=== PATIENT | female | born 1985 | race Two or more races ===

== ENCOUNTER 2020-01-27 16:44 | Outpatient (REF) | payer OTHER, SELFPAY | END 2020-01-27 16:45 | disposition home or self-care (01) | LOC: HO.LAB 16:44 | PROVIDERS: PCP Internal Medicine; Visit Provider Internal Medicine | DX: Z20.828 Contact with and (suspected) exposure to other viral communicable diseases (principal) | CPT/HCPCS: U0003 ==

== ENCOUNTER 2023-11-21 17:17 | Emergency (ER) | payer OTHER, SELFPAY ==
--- NOTE | ~2023-11-21 | CT_ITS ---
EXAMINATION: CT MAXILLOFACIAL WITH CONTRAST CLINICAL INFORMATION: Extensive left facial abscess. COMPARISON: None available. TECHNIQUE: Multidetector helical imaging of the maxillofacial bones was performed in the axial plane following the administration of 85 mL of Omnipaque 350 intravenous contrast. Generation of coronal and sagittal reformatted images. This CT examination was performed using dose optimization techniques as appropriate, variously including the following: *Automated exposure control *Adjustment of mA and/or kV according to patient size (this includes techniques or standardized protocols for targeted exams where dose is matched to indication/reason for exam; i.e. extremities or head) *Use of iterative reconstruction technique DLP: 345 mGy-cm FINDINGS: FRONTAL SINUSES AND DRAINAGE PATHWAYS: The frontal sinuses are clear. The frontoethmoidal recesses are patent. MAXILLARY SINUSES AND DRAINAGE PATHWAYS: Moderate mucosal thickening of the left maxillary sinus. The right maxillary sinus is clear. The maxillary ostia and infundibula are patent. ETHMOID SINUSES: Mild mucosal thickening of the ethmoid air cells. The ethmoid roofs appear symmetric and intact. SPHENOID SINUS AND DRAINAGE PATHWAYS: The sphenoid sinus is clear. The sphenoethmoidal recesses are patent. The carotid canals are normally covered by bone. NASAL PASSAGE: Mild mucosal thickening of the nasal passages. Mild rightward nasal septal deviation with spurring. ORBITS: Normal appearance of the osseous orbits. The lamina papyracea are intact. No significant retrobulbar edema. Normal appearance of the globes. Normal symmetric appearance of the extraocular musculature. No abnormalities of the intraconal or extraconal adipose tissue. Normal appearance of the optic nerve sheaths. Normal appearance of the lacrimal glands. No orbital fluid collections. No abnormalities of the orbital apices. TEMPOROMANDIBULAR JOINTS: The temporomandibular joints remain well aligned. Normal appearance of the temporomandibular joints. ADDITIONAL RELEVANT FINDINGS: No evidence of maxillofacial bone fractures. The zygomatic arches remain intact. No nasal bone fracture. No evidence of mandibular or maxillary fracture. No significant maxillary/mandibular periapical disease. The visualized mastoid air cells and middle ear cavities remain well aerated. Limited evaluation of the intracranial structures without significant abnormalities. Periapical lucencies associated with the maxillary left premolars. Moderate cutaneous thickening and subcutaneous edema in the left side of face, centered in the inferior periorbital soft tissues/malar region. Moderate fat stranding extends into the left buccal and retromaxillary soft tissues. No radiopaque foreign bodies. There are demonstrated discrete drainable fluid collection. The right premaxillary/retromaxillary soft tissues are clear. The pterygopalatine fossa, temporal fossa, and parapharyngeal adipose tissue is maintained. No demonstrated soft tissue abnormalities within the intrinsic tissues of the tongue. Fatty atrophy of muscle mandibular glands. Micronodular appearance of the remaining parotid glandular tissue, otherwise largely with fatty replacement. CT/CT facial bones w IV con IMPRESSION: Moderate edema throughout the left side of face, centered in the inferior periorbital soft tissues/malar region. Moderate fat stranding extends into the left buccal and retromaxillary soft tissues. Moderate left maxillary sinus disease. Periapical disease associated with the maxillary left premolars. Findings are suggestive of left facial cellulitis without discrete drainable fluid collection. No radiopaque foreign bodies. Potentially odontogenic in nature. Fatty atrophy of the parotid and submandibular glands with micronodular appearance. This appearance is nonspecific but may be seen in the setting of Sjogren syndrome. Electronically signed by: Azeem Williamson DO 11/21/2023 09:59 PM EDT
[2023-11-21 17:21] VITALS: BP 143/93; PULSE 105; RESP 18; TEMP 37.1; O2SAT 98; BMI 28.9
--- NOTE | 2023-11-21 17:28 | ED.DENTAL ---
HPI - Dental/Oral General Chief complaint: Dental/Oral Stated complaint: dental/on antibiotics but getting worse Time Seen by Provider: 11/21/23 18:32 Source: patient Mode of arrival: ambulatory Limitations: no limitations History of Present Illness ED Provider: Corazon Naylor PA-C HPI Narrative: Patient is a 38 year old assigned female at with no reported medical history presenting to the emergency department today with left sided facial swelling. Patient states that yesterday, she began to have upper dental pain and left sided facial swelling. Patient states that her dentist called in Amoxicillin and then saw her in the office today. Patient states that since the office visit, her swelling has gotten significantly worse. Patient denies any dizziness, lightheadedness, abdominal pain, nausea, vomiting, fever, chills, blurry vision, double vision, loss of vision, chest pain, difficulty breathing, shortness of breath, back pain, night sweats, pain with urination, increased urinary frequency, increased urinary urgency, blood in her urine or stool, syncope or a near syncopal episode, recent trauma or falls, bowel incontinence, bladder incontinence, or any other complaints at this time. Relieving factors: nothing Exacerbating factors: nothing Treatment prior to arrival: other (2 doses of Amoxicillin) Related Data Allergies Allergy/AdvReac Type Severity Reaction Status Date / Time No Known Allergies Allergy Verified 11/21/23 17:29 Review of Systems Constitutional: Constitutional: Reports no additional constitutional complaints, Denies chills, Denies fever(s) and Denies night sweats Eyes: Eyes: Reports no additional eye complaints, Denies blurry vision, Denies change in vision, Denies diplopia, Denies eye discharge, Denies loss of vision and Denies eye pain ENT: Denies dizziness Comments: left sided facial swelling Cardiovascular: Cardiovascular: Reports no additional cardiovascular complaints, Denies chest pain, Denies lightheadedness, Denies Loss of Consciousness and Denies dyspnea Respiratory: Respiratory: Reports no additional respiratory complaints and Denies dyspnea Gastrointestinal: Gastrointestinal: Reports no additional gastrointestinal complaints, Denies abdominal pain, Denies melena, Denies hematochezia, Denies change in bowel habits and Denies change in stool character Genitourinary: Genitourinary: Denies hematuria, Denies urinary frequency, Denies dysuria, Denies urinary incontinence, Denies urinary hesitancy and Denies urinary urgency Musculoskeletal: Musculoskeletal: Reports no additional musculoskeletal complaints, Denies numbness and Denies tingling Neurologic: Denies dizziness, Denies loss of vision, Denies numbness and Denies tingling Psychiatric: Psychiatric: Reports no additional psychiatric complaints Endocrine: Endocrine: Reports no additional endocrine complaints Hematologic/Lymphatic: Hematologic/Lymphatic: Reports no additional hematologic/lymphatic complaints Allergic/Immunologic: Allergic/Immunologic: Reports no additional allergic/immunologic complaints [facility] Past Medical History Attestation statement: The following information was validated with the patient. Source: old records reviewed and nursing notes reviewed Social History Social History Advance Directives: No Advance Directives Information Provided: No Do you have a plan to hurt others: No Plan Physical Exam Vital Signs: Vital Signs: Last Vital Signs Temp 98.7 F 11/21/23 22:31 Pulse 105 H 11/21/23 22:31 Resp 18 11/21/23 22:31 BP 143/93 H 11/21/23 22:31 Pulse Ox 98 11/21/23 22:31 O2 Del Method Room Air 11/21/23 22:31 BMI result Body Mass Index 28.9 Const: General: cooperative, no acute distress, alert and awake Nutritional Appearance: well nourished Orientation/consciousness: patient oriented x3 Limitations: no limitations HEENT: Head: Yes normal to inspection and Yes atraumatic Ears: hearing grossly normal bilaterally and external ears normal General nose exam: Normal external nose present, no nasal discharge noted and no epistaxis Face and sinus: No abrasion, No laceration and Yes other (left sided facial swelling) Mouth: Normal oral and palatal mucosa present, no drooling and no muffled voice Eyes: Conjunctivae: conjunctivae normal Pupils: Equal, round and reactive pupils present EOM: EOMs intact bilaterally Neck: Neck: Yes normal visual inspection, Yes full ROM and Yes no lymphadenopathy Chest: Chest palpation & inspection: normal inspection of the chest Resp: Effort & Inspection: normal respiratory effort and able to speak in complete sentences GI: Inspection: Yes normal to inspection Neuro: General: patient oriented x3 and moves all extremities Cranial nerves: Yes Equal, round and reactive pupils present Cognition (Neuro): normal cognition Extrem: General: Yes normal to inspection, Yes full ROM and Yes capillary refill normal Psych: Appearance: grossly normal Mental Status: mental status grossly normal Affect: normal affect Attitude: cooperative Thought process: Normal thought process present Thought content: Normal thought content present Insight: Good insight present (Psych) Course Course Course Narrative: This is rapid medical exam. Deferred additional HPI, ROS, PE to primary provider. 38 yo female with no known medical history. Left sided facial swelling/pain wth toothache. Took one amoxicillin. Will need labs, UA, ur preg. May need CT VSS -A. Pascucci [employer] Medications Administered Discontinued Medications Generic Name Dose Route Start Last Admin Trade Name Marcello PRN Reason Stop Dose Admin Ampicillin Sodium/Sulbactam 100 mls @ 200 mls/hr 11/21/23 18:37 11/21/23 19:42 Sodium 3 gm/ Sodium Chloride IV 11/21/23 19:06 Infused ONCE ONE Infusion Iohexol 85 ml 11/21/23 19:42 11/21/23 19:43 Iohexol 350 Mg/Ml 100 Ml Infus..Btl IV 11/21/23 19:43 85 ml ONCE ONE Administration Medical Decision Making Medical Decision Making [facility] Narrative: Patient is a 38 year old assigned female at with no reported medical history presenting to the emergency department today with left sided facial swelling and mouth pain. Patient's physical exam showed significant left sided facial swelling. No fluctuance or abscess in the mouth was appreciated. Patient's blood work was unremarkable. Patient's urine showed no acute process. Patient's facial CT showed facial cellulitis with no abscess. I staffed this patient with my attending physician, Dr. Fowler, who agreed with my plan of having the patient beginning to take the clindamycin she has from her dentist and following up with her dentist outpatient with strict return precautions. I explained my physical exam findings as well as all test results to the patient. I answered all questions asked by the patient. I stressed the importance of the patient taking her medication as directed (either prescribed or as the over the counter packaging recommends). I stressed the importance of the patient following up with her primary care provider and her dentist. I stressed the importance of the patient returning to the emergency department immediately if her symptoms were to worsen or if she were to develop any dizziness, shortness of breath, difficulty breathing, chest pain, blurry vision, loss of vision, nausea, vomiting, abdominal pain, fever, chills, back pain, or any other complaints. Patient verbalized agreement and understanding with this treatment plan and discharge. Differential Diagnosis Differential Diagnoses: The differential diagnosis associated with the presentation includes Facial cellulitis Facial abscess Admission/Observation Consideration of admission/observation: Escalation of care including admission/observation considered Patient would have been admitted to the hospital had her work up had any findings where hospital admission was appropriate and her clinical presentation warranted hospital admission. Lab Data [facility] Lab Attestation statement: I reviewed the patient's lab results. My interpretation of these results are in the [facility] Rationale portion of this note. 11/21/23 17:34 11/21/23 17:34 Labs: Lab Results 11/21/23 11/21/23 Range/Units 17:34 18:51 WBC 7.8 (4.8-10.8) X10*3/uL RBC 4.71 (4.20-5.50) X10*6/uL Hgb 13.9 (12.0-16.0) g/dl Hct 40.8 (37.0-47.0) % MCV 86.6 (80.0-98.0) fL MCH 29.5 (27.0-33.0) pg MCHC 34.1 (31.0-35.0) g/dl RDW 13.2 (11.0-16.0) % Plt Count 225 (160-400) X10*3/uL MPV 10.3 (9.4-12.3) fL Immature Gran % (Auto) 0.1 (0.0-0.4) % Neut % (Auto) 66.2 (45-73) % Lymph % (Auto) 19.4 L (20-40) % [place] % (Auto) 13.4 H (2-11) % Eos % (Auto) 0.5 (0-4) % Baso % (Auto) 0.4 (0-2) % Lymph # (Auto) 1.5 (1.2-4.9) X10*3/uL [place] # (Auto) 1.1 (0.1-1.2) X10*3/uL Eos # (Auto) 0.0 (0.0-0.4) X10*3/uL Baso # (Auto) 0.0 (0.0-0.2) X10*3/uL Abs Immat Gran (auto) 0.01 (0.00-0.03) X10*3/uL Absolute Neuts (auto) 5.2 (2.0-8.3) x10*3/uL Absolute Nucleated RBC 0.000 (0.0-0.012) X10*3/uL Nucleated RBC % (auto) 0.0 (0.0-0.2) /100WBC Sodium 137 (135-145) mmol/L Potassium 3.9 (3.3-5.1) mmol/L Chloride 104 (96-108) mmol/L Carbon Dioxide 26 (22-29) mmol/L Anion Gap 11 L (12-20) BUN 11 (9-16) mg/dL Creatinine 1.31 (0.5-1.4) mg/dL Estim Creat Clear Calc 66.9 Estimated GFR 45 Random Glucose 102 (60-115) mg/dL Calcium 9.3 (8.4-10.2) mg/dL Beta HCG, Quant < 2 mIU/mL Urine Color Yellow Urine Appearance Clear Urine pH 6.5 (5.0-9.0) Ur Specific Aubrey 1.020 (1.005-1.025) Urine Protein Trace (Neg-Trace) mg/dL Urine Glucose (UA) Negative (Negative) mg/dL Urine Ketones Negative (Negative) mg/dL Urine Blood Small (1+) H (Negative) Urine Nitrite Negative (Negative) Ur Leukocyte Esterase Negative (Negative) Urine RBC 0-2 (0-2) /HPF Urine WBC 0-5 (0-5) /HPF Ur Squamous Epith Cells 0-2 (0-2) /HPF Urine Bacteria None Seen (None Seen) Hyaline Casts 0-2 (0-2) /LPF Urine Test NEGATIVE (NEGATIVE) Independent Interpretation I performed an independent interpretation of an: CT Scan Interpretation: My interpretation is in agreement with the radiologist's impression of this imaging study. EXAMINATION: CT MAXILLOFACIAL WITH CONTRAST CLINICAL INFORMATION: Extensive left facial abscess. COMPARISON: None available. TECHNIQUE: Multidetector helical imaging of the maxillofacial bones was performed in the axial plane following the administration of 85 mL of Omnipaque 350 intravenous contrast. Generation of coronal and sagittal reformatted images. This CT examination was performed using dose optimization techniques as appropriate, variously including the following: *Automated exposure control *Adjustment of mA and/or kV according to patient size (this includes techniques or standardized protocols for targeted exams where dose is matched to indication/reason for exam; i.e. extremities or head) *Use of iterative reconstruction technique DLP: 345 mGy-cm FINDINGS: FRONTAL SINUSES AND DRAINAGE PATHWAYS: The frontal sinuses are clear. The frontoethmoidal recesses are patent. MAXILLARY SINUSES AND DRAINAGE PATHWAYS: Moderate mucosal thickening of the left maxillary sinus. The right maxillary sinus is clear. The maxillary ostia and infundibula are patent. ETHMOID SINUSES: Mild mucosal thickening of the ethmoid air cells. The ethmoid roofs appear symmetric and intact. SPHENOID SINUS AND DRAINAGE PATHWAYS: The sphenoid sinus is clear. The sphenoethmoidal recesses are patent. The carotid canals are normally covered by bone. NASAL PASSAGE: Mild mucosal thickening of the nasal passages. Mild rightward nasal septal deviation with spurring. ORBITS: Normal appearance of the osseous orbits. The lamina papyracea are intact. No significant retrobulbar edema. Normal appearance of the globes. Normal symmetric appearance of the extraocular musculature. No abnormalities of the intraconal or extraconal adipose tissue. Normal appearance of the optic nerve sheaths. Normal appearance of the lacrimal glands. No orbital fluid collections. No abnormalities of the orbital apices. TEMPOROMANDIBULAR JOINTS: The temporomandibular joints remain well aligned. Normal appearance of the temporomandibular joints. ADDITIONAL RELEVANT FINDINGS: No evidence of maxillofacial bone fractures. The zygomatic arches remain intact. No nasal bone fracture. No evidence of mandibular or maxillary fracture. No significant maxillary/mandibular periapical disease. The visualized mastoid air cells and middle ear cavities remain well aerated. Limited evaluation of the intracranial structures without significant abnormalities. Periapical lucencies associated with the maxillary left premolars. Moderate cutaneous thickening and subcutaneous edema in the left side of face, centered in the inferior periorbital soft tissues/malar region. Moderate fat stranding extends into the left buccal and retromaxillary soft tissues. No radiopaque foreign bodies. There are demonstrated discrete drainable fluid collection. The right premaxillary/retromaxillary soft tissues are clear. The pterygopalatine fossa, temporal fossa, and parapharyngeal adipose tissue is maintained. No demonstrated soft tissue abnormalities within the intrinsic tissues of the tongue. Fatty atrophy of muscle mandibular glands. Micronodular appearance of the remaining parotid glandular tissue, otherwise largely with fatty replacement. CT/CT facial bones w IV con IMPRESSION: Moderate edema throughout the left side of face, centered in the inferior periorbital soft tissues/malar region. Moderate fat stranding extends into the left buccal and retromaxillary soft tissues. Moderate left maxillary sinus disease. Periapical disease associated with the maxillary left premolars. Findings are suggestive of left facial cellulitis without discrete drainable fluid collection. No radiopaque foreign bodies. Potentially odontogenic in nature. Fatty atrophy of the parotid and submandibular glands with micronodular appearance. This appearance is nonspecific but may be seen in the setting of Sjogren syndrome. Electronically signed by: Azeem Williamson DO 11/21/2023 09:59 PM EDT Dictated By: Arun Williamson DO Signed By: Electronically signed by Arun Williamson DO 11/21/23 2799 Radiology Impression Discussion of test interpretation with radiology: I have reviewed the radiologist's reading. Discharge Plan Discharge Clinical Impression: Cellulitis of face Patient Disposition: Home, Self-Care Instructions: Cellulitis (DC) Additional Instructions: Take your clindamycin as directed / prescribed by your dentist. If you symptoms do not improve or they worsen over the next 48 hours, return immediately. Follow up with your primary care provider. Return to the emergency department immediately if your symptoms worsen or if you develop any dizziness, shortness of breath, difficulty breathing, chest pain, blurry vision, loss of vision, nausea, vomiting, abdominal pain, fever, chills, back pain, or any other complaints. Referrals: Janette Rogers MD [Primary Care Provider] - Stand Alone Forms: Work/School Release Interventions: ED Discharge Assessment Last Done: 11/21/23 22:31 Discharge Date/Time: 11/21/23 22:36 Print Language: Ethiopian
[2023-11-21 17:38] LABS: MANUAL DIFF FLAG NO
[2023-11-21 17:39] LABS: Basophils Percent Auto 0.4 % (0-2); Eosinophils Percent Auto 0.5 % (0-4); Hematocrit 40.8 % (37.0-47.0); Hemoglobin 13.9 g/dl (12.0-16.0); Imm Gran Abs Auto 0.01 X10*3/uL (0.00-0.03); Imm Gran Pct Auto 0.1 % (0.0-0.4); Lymphocytes Absolute Auto 1.5 X10*3/uL (1.2-4.9); Lymphocytes Percent Auto 19.4 % (20-40); Mean Corpuscular HGB Conc 34.1 g/dl (31.0-35.0); Mean Corpuscular Hemoglobin 29.5 pg (27.0-33.0); Mean Corpuscular Volume 86.6 fL (80.0-98.0); Mean Platelet Volume 10.3 fL (9.4-12.3); Monocytes Absolute Auto 1.1 X10*3/uL (0.1-1.2); Monocytes Percent Auto 13.4 % (2-11); Neutrophils Absolute Auto 5.2 x10*3/uL (2.0-8.3); Neutrophils Percent Auto 66.2 % (45-73); Platelet Count 225 X10*3/uL (160-400); Red Blood Count 4.71 X10*6/uL (4.20-5.50); Red Cell Distribution Width 13.2 % (11.0-16.0); White Blood Count 7.8 X10*3/uL (4.8-10.8)
[2023-11-21 17:51] LABS: Anion Gap 11 (12-20); Blood Urea Nitrogen 11 mg/dL (9-16); Calcium 9.3 mg/dL (8.4-10.2); Carbon Dioxide 26 mmol/L (22-29); Chloride 104 mmol/L (96-108); Creatinine Clr Calc Pharmacy 66.9; Estimated Glomerular Filt Rate 45; Glucose Random 102 mg/dL (60-115); Potassium 3.9 mmol/L (3.3-5.1); Sodium 137 mmol/L (135-145)
[2023-11-21 18:58] LABS: Appearance Urine Clear; Color Urine Yellow; Glucose Urine UA Negative (Negative); Leukocyte Esterase Urine Negative (Negative); Nitrite Urine Negative (Negative); PH 6.5 (5.0-9.0); UMIC TRIGGER UACC YES; Urine Blood Small (1+) (Negative); Urine Ketones Negative (Negative); Urine Protein Trace mg/dL (Neg-Trace)
[2023-11-21 19:00] LABS: UPreg QC Valid YES; Urine Pregnancy NEGATIVE (NEGATIVE)
[2023-11-21 19:05] LABS: Bacteria Urine None Seen (None Seen); Hyaline Casts Urine 0-2 /LPF (0-2); RBC Urine 0-2 /HPF (0-2); Squamous Epithelial Cell Urine 0-2 /HPF (0-2); WBC Urine 0-5 /HPF (0-5)
[2023-11-21] MEDS: Ampicillin Sodium/Sulbactam Na 3 GM in 0.9 % Sodium Chloride 100 ML IV (19:14)
[2023-11-21 19:29] LABS: HCG Quantitative < 2 mIU/mL
[2023-11-21] MEDS: iohexoL 350 MG/ML 100 ML INFUS..BTL 85 ML IV (19:43)
[2023-11-21 22:31] VITALS: BP 143/93; PULSE 105; RESP 18; TEMP 37.1; O2SAT 98
== END 2023-11-21 22:36 | disposition home or self-care (01) ==
PROVIDERS: Nurse Practitioner Family; Physician Assistant Medical; Emergency Provider Emergency Medicine Emergency Medical Services; PCP Internal Medicine
DX: L03.211 Cellulitis of face (principal); K08.89 Other specified disorders of teeth and supporting structures
CPT/HCPCS: 36415; 70487; 80048; 81001; 81025; 84702; 85025; 96365; 99283; 99284; J0295; Q9967